=== PATIENT | female | born 1970 | race Caucasian/White ===

== ENCOUNTER 2016-07-01 17:28 | Emergency (ER) | payer OTHER ==
[2016-07-01 17:52] LABS: BASOPHILS 0.3 %; BASOPHILS ABSOLUTE 0.02 10/3/uL (0.0-0.16); EOSINOPHILS 3.8 %; EOSINOPHILS ABSOLUTE 0.25 10/3/uL (0.0-0.53); ER CBC TAT 0 Hrs 05 Mins; HEMATOCRIT 40.4 % (36.0-48.0); HEMOGLOBIN 14.1 g/dL (12.0-16.0); IMMATURE GRANULOCYTES 0.2 %; IMMATURE GRANULOCYTES ABSOLUTE 0.01 10/3/uL (0.0-0.11); LYMPHOCYTES 16.2 %; LYMPHOCYTES ABSOLUTE 1.06 10/3/uL (0.67-4.30); MEAN CORPUS HGB CONC 34.9 g/dL (32.0-36.0); MEAN CORPUSCULAR VOLUME 91.6 fL (80-100); MEAN PLATELET VOLUME 9.4 fL (9.2-13.0); MONOCYTES 5.3 %; MONOCYTES ABSOLUTE 0.35 10/3/uL (0.21-1.20); NEUTROPHILS 74.2 %; NEUTROPHILS ABSOLUTE 4.86 10/3/uL (2.02-8.40); PLATELET COUNT 235 10/3/uL (150-400); RBC DISTRIBUTION WIDTH 12.6 % (12.0-16.0); RED CELL COUNT 4.41 10/6/uL (4.0-5.6); WHITE BLOOD CELLS 6.6 10/3/uL (4.5-10.5)
[2016-07-01 17:53] LABS: MANUAL DIFF NO %
[2016-07-01 17:59] LABS: INTERNATIONAL NORMAL RATI 1.1 UNITS (-); PROTIME (NOT ORD) 13.6 SEC (12.0-14.5)
[2016-07-01 18:00] LABS: PARTIAL THROMBO TIME 28.1 SEC (22.5-37.2)
[2016-07-01 18:09] LABS: BUN (BLOOD UREA NITROGEN) 10 MG/DL (6-23); CALCIUM, SERUM 8.1 MG/DL (8.5-10.4); CHEST PAIN PROFILE TAT 0 Hrs 22 Mins; CHLORIDE, SERUM 106 MMOL/L (96-112); CO2 (CARBON DIOXIDE) 28 MMOL/L (24-34); CREATININE 0.67 MG/DL (0.55-1.02); GFR AFRICAN AMERICAN 122 ML/MIN (>=60); GFR NON AFRICAN AMERICAN 105 ML/MIN (>=60); POTASSIUM, SERUM 3.8 MMOL/L (3.5-5.3); SODIUM, SERUM 138 MMOL/L (135-148); TROPONIN I <0.02 NG/ML (<0.05)
[2016-07-01 18:14] LABS: GLUCOSE, SERUM 113 MG/DL (60-99)
== END 2016-07-01 19:50 | disposition left against medical advice (07) ==
LOC: ER 17:28
PROVIDERS: Hospitalist
DX: Z53.21 Procedure and treatment not carried out due to patient leaving prior to being seen by health care provider (principal)
CPT/HCPCS: 71020; 80048; 83735; 84484; 85025; 85610; 85730; 93005